=== PATIENT | male | born 1980 | race African-American/Black ===

== ENCOUNTER 2020-04-26 18:47 | Emergency (ER) | payer MEDICAID ==
[~2020-04-26] VITALS: Ht 190.5 cm; Wt 102.0 kg
[2020-04-26] MEDS ORDERED: LORAZEPAM 1MG TABLET PO ONE (19:30)
[2020-04-26 20:08] LABS: BASOPHILS % 0.6 % (0.0-2.0); HEMATOCRIT. 49.5 % (42.0-52.0); LYMPHOCYTES % 29.1 % (20.0-50.0); MEAN CORPUSCULAR VOLUME 87.5 fL (80.0-94.0); MEAN PLATELET VOLUME 7.4 fl (7.4-10.4); MONOCYTES % 7.2 % (2.0-8.0); NEUTROPHILS % 59.1 % (40.0-76.0); PLATELET 311 x1000/uL (130-400); RED BLOOD CELL COUNT 5.65 mill/uL (4.7-6.1); RED CELL DISTRIBUTION WIDTH 13.2 % (11.6-14.6)
[2020-04-26 20:14] LABS: CHLORIDE 103 mEq/L (98-107)
[2020-04-27 00:08] VITALS: BP 143/75
== END 2020-04-27 00:15 | disposition home or self-care (01) ==
LOC: ER 19:09
DX: R07.89 Other chest pain (principal); F14.10 Cocaine abuse, uncomplicated; F15.10 Other stimulant abuse, uncomplicated; J45.909 Unspecified asthma, uncomplicated; F17.210 Nicotine dependence, cigarettes, uncomplicated
CPT/HCPCS: 36415; 71045; 80048; 84484; 85025; 93005; 99285

== ENCOUNTER 2021-07-03 00:20 | Emergency (ER) | payer MEDICAID ==
[~2021-07-03] VITALS: Ht 172.7 cm; Wt 77.0 kg
[2021-07-03] MEDS ORDERED: MORPHINE SULFATE 4 MG/ML CPJ (NOT FOR IM USE) IV ONE (00:45)
[2021-07-03] MEDS ORDERED: KETAMINE HCL 50 MG/ML 10ML IV ONE (01:00)
[2021-07-03] MEDS ORDERED: PROPOFOL 200MG/20ML VIAL IV ONE (01:00)
[2021-07-03 03:20] VITALS: BP 135/99
== END 2021-07-03 03:33 | disposition home or self-care (01) ==
LOC: ER 00:20
DX: S43.085A Other dislocation of left shoulder joint, initial encounter (principal); J45.909 Unspecified asthma, uncomplicated; X58.XXXA Exposure to other specified factors, initial encounter; Y93.89 Activity, other specified; Y92.9 Unspecified place or not applicable
CPT/HCPCS: 73020; 73030; 96374; 99152; 99285; J2270; J2704; J3490